=== PATIENT | female | born 1950 | race Caucasian/White ===

== ENCOUNTER → 2021-12-17 | Outpatient (CLI) | payer MEDICARE, OTHER ==
--- NOTE | 2021-12-18 16:10 | BD ---
EXAMINATION TYPE: Axial Bone Density DATE OF EXAM: 12/17/2021 COMPARISON: NONE CLINICAL HISTORY: 71 years year old Female. ICD-10 CODE: M81.0 Osteoporosis Height: 65.5 Weight: 182 FRAX RISK QUESTIONS: Alcohol (3 or more units per day): YES RISK FACTORS HISTORY OF: Active: YES Diet low in dairy products/other sources of calcium: YES Postmenopausal woman: 47 Take estrogen and/or progesterone medications: NOT NOW How lon YRS Lost more than 2 inches in height since high school: YES MEDICATIONS: Thyroid Medications: YES Which medication: Synthroid How Lon YRS Additional Medications: YES CRESTOR EXAM MEASUREMENTS: Bone mineral densitometry was performed using the [employer] System. Bone mineral density as measured about the Lumbar spine is: ----- L1-L4(G/cm2): 1.099 T Score Values are as follows: ----- L1: -1.1 ----- L2: -0.6 ----- L3: -0.8 ----- L4: -0.4 ----- L1-L4: -0.7 Bone mineral density BASELINE Bone mineral density about the R hip (g/cm2): .719 Bone mineral density about the L hip (g/cm2): .724 T Score values are as follows: -----R Neck: -2.3 -----L Neck: -2.3 -----R Total: -2.5 -----L Total: -2.4 Bone mineral density BASELINE FRAX%s: The graph provided illustrates a 17 chance for a major osteoporotic fx and a 5.1 chance for t he hips probability for fx in 10 years time. IMPRESSION: NOTE: T-SCORE=SD OF THE YOUNG ADULT MEAN.
--- NOTE | 2021-12-18 16:32 | MM ---
Reason for Exam: Screening (asymptomatic). Last mammogram was performed 1 year(s) and 6 month(s) ago. Patient History: Unspecified Hormone for 5 years from age 50 until age 55. Risk Values: Mallorie 5 year model risk: 1.1%. NCI Lifetime model risk: 3.2%. Prior Study Comparison: 12/23/2018 Bilateral MG screening mammo w CAD - 2, Unknown. 06/22/2020 Bilateral MG screening mammo w CAD - 2, Unknown. Tissue Density: There are scattered fibroglandular densities. Findings: Analyzed By CAD. No suspicious groups of microcalcifications, spiculated or lobular masses, architectural distortion or other secondary signs of malignancy are mammographically apparent. Overall Assessment: Benign, BI-RAD 2 Management: Screening Mammogram of both breasts in 1 year. A negative mammogram report should not preclude additional follow up of suspicious palpable abnormalities. Patient should continue monthly self breast exam. A clinical breast exam by your physician is recommended on an annual basis and results should be correlated with mammographic findings. Electronically signed and approved by: River Poe D.O. Radiologis
== END | disposition home or self-care (01) ==
LOC: RADMAMWWP 12:44
PROVIDERS: ATTEND Family Medicine
DX: Z12.31 Encounter for screening mammogram for malignant neoplasm of breast (principal); M81.0 Age-related osteoporosis without current pathological fracture
CPT/HCPCS: 77063; 77067; 77080

== ENCOUNTER → 2022-01-08 | Day surgery (SDC) | payer MEDICARE, OTHER ==
[~2022-01-08] MED LIST: LACTATED RINGERS 1,000 ML IV ONE; LACTATED RINGERS 1,000 ML IV SCH; LIDOCAINE 1% (10MG/ML) FOR IV START INTRADERMA PRN; PROPOFOL 10 MG/ML 20 ML VIAL IV ONE
[2022-01-08 08:48] VITALS: TEMP 97.6
--- NOTE | 2022-01-08 09:11 | P.GSHP ---
History of Present Illness H&P Date: 01/08/22 CHIEF COMPLAINT: Colon screen HISTORY OF PRESENT ILLNESS: The patient is a 71-year-old female who presents for colon screen. Lower endoscopy was offered for further evaluation and management. PAST MEDICAL HISTORY: Please see list. PAST SURGICAL HISTORY: Please see list. MEDICATIONS: Please see list. ALLERGIES: Please see list. SOCIAL HISTORY: No illicit drug use FAMILY HISTORY: No reports of Crohn disease or ulcerative colitis. REVIEW OF ORGAN SYSTEMS: CONSTITUTIONAL: No reports of fevers or chills. PHYSICAL EXAM: VITAL SIGNS: Stable GENERAL: Well-developed pleasant in no acute distress. HEENT: No scleral icterus. Extraocular movements grossly intact. Moist buccal mucosa. NECK: Supple without lymphadenopathy. CHEST: Unlabored respirations. Equal bilateral excursions. CARDIOVASCULAR: Regular rate and rhythm. Distal 2+ pulses. ABDOMEN: Soft, nontender, nondistended. MUSCULOSKELETAL: No clubbing, cyanosis, or edema. ASSESSMENT: 1. Colon screen. PLAN: 1. Recommend proceeding with a lower endoscopy Past Medical History Past Medical History: Thyroid Disorder History of Any Multi-Drug Resistant Organisms: None Reported Past Surgical History: Cholecystectomy, Hysterectomy, Joint Replacement Additional Past Surgical History / Comment(s): lft knee replacement, sixto knee arthroscopy, tendon realignment, Past Anesthesia/Blood Transfusion Reactions: Postoperative Nausea & Vomiting (PONV) Smoking Status: Former smoker Medications and Allergies Home Medications Medication Instructions Recorded Confirmed Type Levothyroxine Sodium [Levo-T] 75 mcg PO DAILY 01/07/22 01/07/22 History Rosuvastatin [Crestor] 20 mg PO DAILY 01/07/22 01/07/22 History Allergies Allergy/AdvReac Type Severity Reaction Status Date / Time codeine AdvReac Hallucinati Verified 01/08/22 08:37 ons Surgical - Exam Vital Signs Temp Pulse Resp BP Pulse Ox 97.6 F 79 16 132/88 99 01/08/22 08:35 01/08/22 08:35 01/08/22 08:35 01/08/22 08:35 01/08/22 08:35
[2022-01-08 11:01] VITALS: BP 134/62; PULSE 68; RESP 18
--- NOTE | 2022-01-08 21:45 | FL ---
EXAMINATION TYPE: FL barium enema DATE OF EXAM: 01/08/2022 COMPARISON: NONE HISTORY: Sigmoid stricture. Incomplete colonoscopy. TECHNIQUE: A double contrast barium enema study is performed. A total of 2 minutes 19 seconds of fl uoroscopic time was utilized during procedure and 26 images obtained. FINDINGS: [employer] view of the abdomen shows overall gas prominence after recent attempted colonoscopy extending to the right colon. Slight underlying scoliotic curvature. There is then successful filling to the cecum. Evaluation is suboptimal as patient has redundant sigm oid colon. Patient also unable to hold contrast was significant rectal leak. Both makes evaluation carvalho boptimal. No obstructing or constricting lesion throughout the colon. Mild narrowing stricturing at t he level of sigmoid colon at site of most prominent diverticulosis is noted. Mild diverticulosis in t he left colon is seen. Appendix and the terminal ileum are not successfully refluxed. IMPRESSION: Successful filling to the cecum. No obstructing or constricting lesion. Distal colonic d iverticulosis greatest in sigmoid colon level where there is mild narrowing or stricturing present.
--- NOTE | 2022-01-08 21:51 | P.PCN ---
Date of Procedure: 01/08/22 Description of Procedure: PREOPERATIVE DIAGNOSIS: Personal history of colon polyps Family history malignant colon polyps Colonoscopy screening POSTOPERATIVE DIAGNOSIS: Sigmoid diverticulosis with stricture Internal hemorrhoids, grade 4 External hemorrhoids, grade 4 OPERATION: Colonoscopy to the splenic flexure SURGEON: Jennifer Gonsalves MD. ANESTHESIA: MAC. INDICATIONS: The patient is an 71-year-old male who presents family history of malignant colon polyps and personal history of colon polyps. Last colonoscopy 5 years. Benefits and risks were described and informed consent was obtained. DESCRIPTION OF PROCEDURE: The patient had undergone Sutab prep. The patient had been brought into the operating room and laid in the left lateral decubitus position. After adequate intravenous sedation, the rectum was examined with 2% lidocaine jelly. External hemorrhoids were encountered. The rectal tone was within normal limits. No lesions were palpated in the rectal vault. An Olympus pediatric colonoscope was advanced through the colon. The prep was excellent. Sigmoid diverticulosis was encountered with stricture unable to advance the scope beyond the splenic flexure without rupture. Colonic polyps were found and removed. Focal colitis was found from diverticulitis of the sigmoid colon. Retroflexion of the scope demonstrated grade 4 internal hemorrhoids without active bleeding or inflammation. The colon was desufflated. The patient had tolerated the procedure well. Withdrawal time was over 6 minutes. FINDINGS: Aronchick preparation quality scale 1 (1-5) Internal hemorrhoids, grade 4 without bleeding. External hemorrhoids, grade 4. No arteriovenous malformations. Sigmoid diverticulosis with stricture prohibiting advancing the scope beyond the splenic flexure for risk of rupture Focal colitis at diverticulitis RECOMMENDATIONS: Recommend barium enema May need sigmoid resection due to stricture from diverticulosis/diverticulitis Plan - Discharge Summary Discharge Rx Participant: No New Discharge Prescriptions: Continue Levothyroxine Sodium [Levo-T] 75 mcg PO DAILY Rosuvastatin [Crestor] 20 mg PO DAILY Discharge Medication List Levothyroxine Sodium [Levo-T] 75 mcg PO DAILY 01/07/22 [History] Rosuvastatin [Crestor] 20 mg PO DAILY 01/07/22 [History] Follow up Appointment(s)/Referral(s): Jennifer Gonsalves MD [STAFF PHYSICIAN] - 01/14/22 (FOLLOW UP WITH DR GONSALVES 01/14/22 AT 3:45) Patient Instructions/Handouts: *Surgery [facility] - (Anesthesia) Endoscopy Discharge Instructions, Barium Enema (ED), Barium Enema (DC), Diverticulosis (DC), Diverticulosis Diet (GEN), Colonoscopy (DC) Activity/Diet/Wound Care/Special Instructions: Barium enema advised Discharge Disposition: HOME SELF-CARE
== END | disposition home or self-care (01) ==
LOC: ORWHC2ENDO 08:19
PROVIDERS: ATTEND Surgery Plastic and Reconstructive Surgery
DX: Z12.11 Encounter for screening for malignant neoplasm of colon (principal); K57.30 Diverticulosis of large intestine without perforation or abscess without bleeding; K63.5 Polyp of colon; K64.3 Fourth degree hemorrhoids; K64.4 Residual hemorrhoidal skin tags; K57.32 Diverticulitis of large intestine without perforation or abscess without bleeding; K56.609 Unspecified intestinal obstruction, unspecified as to partial versus complete obstruction; K52.9 Noninfective gastroenteritis and colitis, unspecified; E07.9 Disorder of thyroid, unspecified; Z79.890 Hormone replacement therapy; Z79.899 Other long term (current) drug therapy; Z96.652 Presence of left artificial knee joint; Z98.890 Other specified postprocedural states; Z87.891 Personal history of nicotine dependence; Z88.5 Allergy status to narcotic agent
CPT/HCPCS: 45330; 74270; 45378; J2704

== ENCOUNTER → 2022-12-18 | Outpatient (CLI) | payer MEDICARE, OTHER ==
--- NOTE | 2022-12-18 11:37 | MM ---
Reason for Exam: Screening (asymptomatic). Last screening mammogram was performed 12 month(s) ago. Patient History: Menarche at age 14. Patient has no children. Hysterectomy at age 37. Postmenopausal. Unspecified Hormone for 5 years from age 50 until age 55. Risk Values: Mallorie 5 year model risk: 1.8%. NCI Lifetime model risk: 4.6%. Prior Study Comparison: 12/23/2018 Bilateral MG screening mammo w CAD - 2, Unknown. 06/22/2020 Bilateral MG screening mammo w CAD - 2, Unknown. 12/17/2021 Bilateral MG 3D screening mammo w/cad, [facility]. Tissue Density: The breast tissue is heterogeneously dense. This may lower the sensitivity of mammography. Findings: Analyzed By CAD. Grouped asymmetries left breast middle depth upper aspect on MLO view. There are at least 4 areas present. Right breast asymmetry middle depth posterior nipple line on CC view approximately 4.0 cm from nipple measuring up to 9 mm. Overall Assessment: Incomplete: need additional imaging evaluation, BI-RAD 0 Management: Diagnostic Mammogram of both breasts. Diagnostic Breast Ultrasound of both breasts. [facility] will attempt to contact patient to return for supplemental views and ultrasound if indicated. Patient should continue monthly self-breast exams. A clinical breast exam by your physician is recommended on an annual basis. This exam should not preclude additional follow-up of suspicious palpable abnormalities. Note on Mallorie scores and lifetime risk: 1. A Mallorie score greater than 3% is considered moderate risk. If this is the case, consider specialist referral to assess eligibility for a risk reducing agent. 2. If overall lifetime risk for the development of breast cancer is 20% or higher, the patient may qualify for future screening with alternating mammogram and breast MRI. Electronically signed and approved by: Amadou Recinos DO
== END | disposition home or self-care (01) ==
LOC: RADMAMWWP 11:17
PROVIDERS: ATTEND Family Medicine
DX: Z12.31 Encounter for screening mammogram for malignant neoplasm of breast (principal); Z78.0 Asymptomatic menopausal state
CPT/HCPCS: 77063; 77067

== ENCOUNTER → 2022-12-25 | Outpatient (CLI) | payer MEDICARE, OTHER ==
--- NOTE | 2022-12-25 12:35 | USB ---
Reason for Exam: Additional evaluation requested from abnormal screening. Patient History: Menarche at age 14. Patient has no children. Hysterectomy at age 37. Postmenopausal. Unspecified Hormone for 5 years from age 50 until age 55. Risk Values: Mallorie 5 year model risk: 1.8%. NCI Lifetime model risk: 4.6%. Technique: Method: Targeted. Prior Study Comparison: 06/22/2020 Bilateral MG screening mammo w CAD - 2, Unknown. 12/17/2021 Bilateral MG 3D screening mammo w/cad, [facility]. 12/18/2022 Bilateral MG 3D screening mammo w/cad, [facility]. Findings: The whole breast of the right breast, the upper outer quadrant of the left breast, the axilla of both breasts and the retroareolar of both breasts were scanned. Technique utilized:US breast workup limited DENNY Image; Ultrasound imaging of: Area of concern, retroareolar region and axilla. No finding to correlate with the bilateral asymmetries on mammography. No evidence for organizing fluid collection or mass. Overall Assessment: Probably benign, BI-RAD 3 Management: Diagnostic Mammogram of both breasts in 6 months. A clinical breast exam by your physician is recommended on an annual basis and results should be correlated with mammographic findings. This exam should not preclude additional follow-up of suspicious palpable abnormalities. Results were given to the patient verbally at the time of exam. Electronically signed and approved by: Amadou Recinos DO
--- NOTE | 2022-12-25 13:12 | MM ---
Reason for Exam: Additional evaluation requested from abnormal screening. Last screening mammogram was performed less than 1 month ago. Patient History: Menarche at age 14. Patient has no children. Hysterectomy at age 37. Postmenopausal. Unspecified Hormone for 5 years from age 50 until age 55. Risk Values: Mallorie 5 year model risk: 1.8%. NCI Lifetime model risk: 4.6%. Prior Study Comparison: 12/17/2021 Bilateral MG 3D screening mammo w/cad, [facility]. 12/18/2022 Bilateral MG 3D screening mammo w/cad, [facility]. Tissue Density: There are scattered fibroglandular densities. Findings: Analyzed By CAD. Persistent focal asymmetries in the left breast upper outer quadrant middle/anterior depth and right breast upper outer quadrant middle depth. Overall Assessment: Incomplete: need additional imaging evaluation, BI-RAD 0 Management: Diagnostic Breast Ultrasound of both breasts. Results were given to the patient verbally at the time of exam. Patient should continue monthly self-breast exams. A clinical breast exam by your physician is recommended on an annual basis. This exam should not preclude additional follow-up of suspicious palpable abnormalities. Note on Mallorie scores and lifetime risk: 1. A Mallorie score greater than 3% is considered moderate risk. If this is the case, consider specialist referral to assess eligibility for a risk reducing agent. 2. If overall lifetime risk for the development of breast cancer is 20% or higher, the patient may qualify for future screening with alternating mammogram and breast MRI. Electronically signed and approved by: Amadou Recinos DO
== END | disposition home or self-care (01) ==
LOC: RADMAMWWP 11:24
PROVIDERS: ATTEND Family Medicine
DX: R92.323 Mammographic fibroglandular density, bilateral breasts (principal); Z78.0 Asymptomatic menopausal state
CPT/HCPCS: 77066; 76642; G0279; 77062

== ENCOUNTER 2023-06-01 10:34 | Emergency (ER) | payer MEDICARE, OTHER ==
[2023-06-01 10:55] VITALS: TEMP 98.3
[2023-06-01] MEDS: SODIUM CHLORIDE 0.9% 500 ML 500 ML IV STA (11:33)
[2023-06-01] MEDS: SODIUM CHLORIDE 0.9% 1,000 ML IV STA (11:33)
[2023-06-01] MEDS: ONDANSETRON 4 MG/2 ML VIAL IVP STA (11:34)
[2023-06-01] MEDS: KETOROLAC 15 MG/ML 1 ML VIAL IVP STA (11:34)
[2023-06-01 11:48] LABS: Basophils % (A) 0 %; Eosinophils # (A) 0.1 k/uL (0-0.7); Eosinophils % (A) 1 %; HCT 44.8 % (34.0-46.0); HGB 14.9 gm/dL (11.4-16.0); Lymphocytes # (A) 0.9 k/uL (1.0-4.8); Lymphocytes % (A) 9 %; MCH 31.2 pg (25.0-35.0); MCHC 33.3 g/dL (31.0-37.0); MCV 93.8 fL (80.0-100.0); Mean Platelet Volume 7.9; Monocytes # (A) 0.3 k/uL (0-1.0); Monocytes % (A) 3 %; Neutrophils # (A) 8.3 k/uL (1.3-7.7); Neutrophils % (A) 86 %; Platelet Count 225 k/uL (150-450); RBC 4.78 m/uL (3.80-5.40); RDW 11.8 % (11.5-15.5); WBC 9.6 k/uL (3.8-10.6)
[2023-06-01 11:58] LABS: ALT 24 U/L (4-34); AST 25 U/L (14-36); African American GFR (CKD) >90 (>60 ml/min/1.73 sqM); Albumin 3.8 g/dL (3.5-5.0); Alkaline Phosphatase 101 U/L (38-126); Anion Gap 5 mmol/L; Blood Urea Nitrogen 18 mg/dL (7-17); Calcium 9.9 mg/dL (8.4-10.2); Carbon Dioxide 23 mmol/L (22-30); Chloride 107 mmol/L (98-107); Glucose 136 mg/dL (74-99); Lipase 58 U/L (23-300); Non-African American GFR(CKD) >90 (>60 ml/min/1.73 sqM); Potassium 4.5 mmol/L (3.5-5.1); Sodium 135 mmol/L (137-145); Total Bilirubin 0.7 mg/dL (0.2-1.3); Total Protein 6.4 g/dL (6.3-8.2)
[2023-06-01 12:14] LABS: Amorphous Sediment,Urine Few /hpf; Appearance,Urine Cloudy (Clear); Bilirubin,Urine Negative (Negative); Blood,Urine Trace (Negative); Color,Urine Yellow; Glucose,Urine (UA) Negative (Negative); Ketones,Urine Negative (Negative); Leukocyte Esterase,Urine Negative (Negative); Mucus,Urine Rare /hpf; Nitrite,Urine Negative (Negative); Protein,Urine Trace (Negative); RBC,Urine 13 /hpf (0-5); Specific Gravity,Urine 1.027 (1.001-1.035); Squamous Epithelial Cell,Urine <1 /hpf (0-4); Urobilinogen,Urine <2.0 mg/dL (<2.0); WBC,Urine 3 /hpf (0-5)
--- NOTE | 2023-06-01 12:24 | CT ---
EXAMINATION TYPE: CT abdomen pelvis wo con DATE OF EXAM: 06/01/2023 COMPARISON: None INDICATION: right flank pain, nausea and vomiting DLP: 596.5 mGycm, Automated exposure control for dose reduction was used. CONTRAST: 0 mL of Isovue 300. Study performed without Oral Contrast TECHNIQUE: Axial images were obtained from above the diaphragm to the pubic rami in the axial plane a t 5 mm thick sections. Reconstructed images are reviewed on the computer in the coronal plane. FINDINGS: Limited CT sections are obtained the lung bases. The lung bases are clear. CT ABDOMEN: Liver: Normal Spleen: Normal Pancreas: Normal Adrenal glands: The adrenal glands are normal. Gallbladder: Normal Kidneys: There is moderate right hydronephrosis and hydroureter. Proximal renal collecting system may be duplicated. Aorta: Normal Inferior vena cava: Normal. CT PELVIS: Loops of bowel within the abdomen and pelvis are normal. Postsurgical changes are within the sigmoid colon. No obstruction is evident. There are loops of bowel which are incompletely distended or lac k oral contrast limiting their evaluation. Appendix: Normal as visualized. Urinary bladder: 0.4 cm calcification in the right posterior lateral urinary bladder may be a distal left ureterovesical junction stone or passage into the urinary bladder. Genitourinary structures: Uterus is not identified. Adnexa are normal. Osseous structures: No suspicious lytic or sclerotic lesions. IMPRESSION: 1. Distal left ureterovesical junction stone measuring 0.4 cm. This may have passed into the urinary bladder. 2. Moderate right hydronephrosis and hydroureter.
--- NOTE | 2023-06-01 12:49 | ED ---
Abdominal Pain HPI - General Chief Complaint: Abdominal Pain Stated Complaint: Vomitting Time Seen by Provider: 06/01/23 10:49 Source: patient, RN notes reviewed Mode of arrival: wheelchair Limitations: no limitations - History of Present Illness Initial Comments: 73-year-old female presents emergency department with chief complaint of right flank pain. Patient states it was sudden onset associated nausea, vomiting. Patient states nothing makes pain feel better or worse no history of kidney stones denies any dysuria she states pain makes her feel constipated but she states she has been having recent bowel movements which were normal denies any rectal bleeding no fevers. - Related Data Home Medications Medication Instructions Recorded Confirmed Rosuvastatin [Crestor] 20 mg PO DAILY 01/07/22 04/15/22 Aspirin [Adult Low Dose Aspirin EC] 81 mg PO DAILY 04/15/22 04/15/22 Multivitamins, Thera [Multivitamin 1 tab PO DAILY 04/15/22 04/15/22 (formulary)] Previous Rx's Medication Instructions Recorded Acetaminophen Tab [Tylenol Tab] 1,000 mg PO Q6HR PRN #30 tablet 04/19/22 Cyclobenzaprine [Flexeril] 10 mg PO TID #30 tab 04/19/22 Apixaban [Eliquis] 5 mg PO BID #60 tab 04/22/22 Furosemide [Lasix] 40 mg PO DAILY #14 tablet 04/22/22 Levothyroxine Sodium [Synthroid] 100 mcg PO DAILY@0630 #30 tab 04/22/22 Metoprolol Succinate (ER) [Toprol 25 mg PO DAILY #30 tab 04/22/22 XL] Simethicone [Gas-X] 125 mg PO TID PRN #20 capsule 04/22/22 traMADol HCl [Ultram] 50 mg PO Q6HR PRN 3 Days #12 tab 04/22/22 Ketorolac [Toradol] 10 mg PO Q8HR #15 tab 06/01/23 Ondansetron Odt [Zofran Odt] 4 mg PO Q8HR PRN #10 tab 06/01/23 Allergies Allergy/AdvReac Type Severity Reaction Status Date / Time codeine AdvReac Hallucinati Verified 06/01/23 10:47 ons Review of Systems ROS Statement: Those systems with pertinent positive or pertinent negative responses have been documented in the HPI. ROS Other: All systems not noted in ROS Statement are negative. Past Medical History Past Medical History: Thyroid Disorder Additional Past Medical History / Comment(s): Diverticulitis History of Any Multi-Drug Resistant Organisms: None Reported Past Surgical History: Cholecystectomy, Hysterectomy, Joint Replacement Additional Past Surgical History / Comment(s): lft knee replacement, sixto knee arthroscopy, tendon realignment, Past Anesthesia/Blood Transfusion Reactions: Postoperative Nausea & Vomiting (PONV) Past Psychological History: No Psychological Hx Reported Smoking Status: Former smoker Past Alcohol Use History: Occasional - Past Family History Mother Family Medical History: No Reported History Father Family Medical History: Cancer Additional Family Medical History / Comment(s): Colon General Exam Limitations: no limitations General appearance: alert, in no apparent distress Head exam: Present: atraumatic, normocephalic, normal inspection Eye exam: Present: normal appearance, PERRL, EOMI. Absent: scleral icterus, conjunctival injection, periorbital swelling Respiratory exam: Present: normal lung sounds bilaterally. Absent: respiratory distress, wheezes, rales, rhonchi, stridor Cardiovascular Exam: Present: regular rate, normal rhythm, normal heart sounds. Absent: systolic murmur, diastolic murmur, rubs, gallop, clicks GI/Abdominal exam: Present: soft, tenderness (Minimal right), normal bowel sounds. Absent: distended, guarding, rebound, rigid Back exam: Absent: CVA tenderness (R), CVA tenderness (L) Course Vital Signs 06/01/23 10:43 Temperature 98.3 F Pulse Rate 61 Respiratory 16 Rate Blood Pressure 124/83 O2 Sat by Pulse 100 Oximetry Medical Decision Making - Medical Decision Making Was pt. sent in by a medical professional or institution (, PA, OPINION POLLS SURVEY WORKER, urgent care, hospital, or prison...) When possible be specific @ -No Did you speak to anyone other than the patient for history (EMS, parent, family, police, friend...)? What history was obtained from this source @ -No Did you review nursing and triage notes (agree or disagree)? Why? @ -I reviewed and agree with nursing and triage notes Were old charts reviewed (outside hosp., previous admission, EMS record, old EKG, old radiological studies, urgent care reports/EKG's, prison records)? Report findings @ -No old charts were reviewed Differential Diagnosis (chest pain, altered mental status, abdominal pain women, abdominal pain men, vaginal bleeding, weakness, fever, dyspnea, syncope, headache, dizziness, GI bleed, back pain, seizure, CVA, palpatations, mental health, musculoskeletal)? @ -Differential Abdominal Pain Women: Appendicitis, Cholecystitis, diverticulosis, ischemic bowel, pancreatitis, hepatitis, UTI, gastroenteritis, AAA, incarcerated hernia, bowel obstruction, constipation, inflammatory bowel, hepatitis, peptic ulcer disease, splenic infarction, perforated viscus, vulvitis, ovarian torsion, PID, kidney stone, placenta abruption, this is not meant to be an all-inclusive list EKG interpreted by me (3pts min.). @ -None X-rays interpreted by me (1pt min.). @ -None done CT interpreted by me (1pt min.). @ -CT abdomen pelvis without contrast showing evidence of a right sided hydroureter, hydronephrosis with a 4 mm distal stone U/S interpreted by me (1pt. min.). @ -None done What testing was considered but not performed or refused? (CT, X-rays, U/S, labs)? Why? @ -None What meds were considered but not given or refused? Why? @ -None Did you discuss the management of the patient with other professionals (professionals i.e. , PA, OPINION POLLS SURVEY WORKER, lab, RT, psych nurse, social media director, criminal research specialist, teacher, credit risk officer, case reviewer)? Give summary @ -No Was smoking cessation discussed for >3mins.? @ -No Was critical care preformed (if so, how long)? @ -No Were there social determinants of health that impacted care today? How? (Home lessness, low income, unemployed, alcoholism, drug addiction, transportation, low edu. Level, literacy, decrease access to med. care, halfway, rehab)? @ -No Was there de-escalation of care discussed even if they declined (Discuss DNR or withdrawal of care, Hospice)? DNR status @ -No What co-morbidities impacted this encounter? (DM, HTN, Smoking, COPD, CAD, Cancer, CVA, ARF, Chemo, Hep., AIDS, mental health diagnosis, sleep apnea, morbid obesity)? @ -None Was patient admitted / discharged? Hospital course, mention meds given and route, prescriptions, significant lab abnormalities, going to OR and other pertinent info. @ -Discharge patient's pain is essentially resolved. Patient will be discharged in stable condition with analgesics, antiemetics return plans discussed. Undiagnosed new problem with uncertain prognosis? @ -No Drug Therapy requiring intensive monitoring for toxicity (Heparin, Nitro, Insulin, Cardizem)? @ -No Were any procedures done? @ -No Diagnosis/symptom? @ -Right ureteral calculus Acute, or Chronic, or Acute on Chronic? @ -Acute Uncomplicated (without systemic symptoms) or Complicated (systemic symptoms)? @ -Uncomplicated Side effects of treatment? @ -No Exacerbation, Progression, or Severe Exacerbation? @ -No Poses a threat to life or bodily function? How? (Chest pain, USA, ND, pneumonia, PE, COPD, DKA, ARF, appy, cholecystitis, CVA, Diverticulitis, Homicidal, S uicidal, threat to staff... and all critical care pts) @ -No - Lab Data Result diagrams: 06/01/23 11:25 06/01/23 11:25 Lab Results 06/01/23 06/01/23 06/01/23 Range/Units 11:25 11:25 11:25 WBC 9.6 (3.8-10.6) k/uL RBC 4.78 (3.80-5.40) m/uL Hgb 14.9 (11.4-16.0) gm/dL Hct 44.8 (34.0-46.0) % MCV 93.8 (80.0-100.0) fL MCH 31.2 (25.0-35.0) pg MCHC 33.3 (31.0-37.0) g/dL RDW 11.8 (11.5-15.5) % Plt Count 225 (150-450) k/uL MPV 7.9 Neutrophils % 86 % Lymphocytes % 9 % Monocytes % 3 % Eosinophils % 1 % Basophils % 0 % Neutrophils # 8.3 H (1.3-7.7) k/uL Lymphocytes # 0.9 L (1.0-4.8) k/uL Monocytes # 0.3 (0-1.0) k/uL Eosinophils # 0.1 (0-0.7) k/uL Basophils # 0.0 (0-0.2) k/uL Sodium 135 L (137-145) mmol/L Potassium 4.5 (3.5-5.1) mmol/L Chloride 107 (98-107) mmol/L Carbon Dioxide 23 (22-30) mmol/L Anion Gap 5 mmol/L BUN 18 H (7-17) mg/dL Creatinine 0.55 (0.52-1.04) mg/dL Est GFR (CKD-EPI)AfAm >90 (>60 ml/min/1.73 sqM) Est GFR (CKD-EPI)NonAf >90 (>60 ml/min/1.73 sqM) Glucose 136 H (74-99) mg/dL Calcium 9.9 (8.4-10.2) mg/dL Total Bilirubin 0.7 (0.2-1.3) mg/dL AST 25 (14-36) U/L ALT 24 (4-34) U/L Alkaline Phosphatase 101 (38-126) U/L Total Protein 6.4 (6.3-8.2) g/dL Albumin 3.8 (3.5-5.0) g/dL Lipase 58 (23-300) U/L Urine Color Yellow Urine Appearance Cloudy H (Clear) Urine pH 7.0 (5.0-8.0) Ur Specific [place] 1.027 (1.001-1.035) Urine Protein Trace H (Negative) Urine Glucose (UA) Negative (Negative) Urine Ketones Negative (Negative) Urine Blood Trace H (Negative) Urine Nitrite Negative (Negative) Urine Bilirubin Negative (Negative) Urine Urobilinogen <2.0 (<2.0) mg/dL Ur Leukocyte Esterase Negative (Negative) Urine RBC 13 H (0-5) /hpf Urine WBC 3 (0-5) /hpf Ur Squamous Epith Cells <1 (0-4) /hpf Amorphous Sediment Few H (None) /hpf Urine Mucus Rare H (None) /hpf Disposition Clinical Impression: Right ureteral calculus Disposition: HOME SELF-CARE Condition: Stable Instructions (If sedation given, give patient instructions): Kidney Stones (ED) Additional Instructions: Please return to the Emergency Department if symptoms worsen or any other concerns. Prescriptions: Ketorolac [Toradol] 10 mg PO Q8HR #15 tab Ondansetron Odt [Zofran Odt] 4 mg PO Q8HR PRN #10 tab PRN Reason: Nausea Is patient prescribed a controlled substance at d/c from ED?: No Referrals: Thomas Beck [Primary Care Provider] - 1-2 days Time of Disposition: 12:48
[2023-06-01 13:43] VITALS: BP 134/75; PULSE 71; RESP 18
== END 2023-06-01 13:23 | disposition home or self-care (01) ==
LOC: EC 10:34
DX: N13.2 Hydronephrosis with renal and ureteral calculous obstruction (principal); Z88.5 Allergy status to narcotic agent; Z87.891 Personal history of nicotine dependence
CPT/HCPCS: 36415; 80053; 83690; 85025; 81001; 74176; 99284; 96374; 96375; 96361 ×2; J2405; J1885

== ENCOUNTER → 2023-06-26 | Outpatient (CLI) | payer MEDICARE, OTHER ==
--- NOTE | 2023-06-26 14:54 | MM ---
Reason for Exam: Follow-up at short interval from prior study. Last screening mammogram was performed 6 month(s) ago. Patient History: Menarche at age 14. Patient has no children. Hysterectomy at age 37. Postmenopausal. Unspecified Hormone for 5 years from age 50 until age 55. Sister had breast cancer, age 76. Risk Values: Mallorie 5 year model risk: 3.2%. NCI Lifetime model risk: 7.7%. Prior Study Comparison: 12/23/2018 Bilateral MG screening mammo w CAD - 2, Unknown. 06/22/2020 Bilateral MG screening mammo w CAD - 2, Unknown. 12/17/2021 Bilateral MG 3D screening mammo w/cad, [facility]. 12/18/2022 Bilateral MG 3D screening mammo w/cad, [facility]. 12/25/2022 Bilateral MG 3D work up w/cad DEN[facility], [facility]. 12/25/2022 Bilateral US breast workup limited [facility], [facility]. Tissue Density: There are scattered areas of fibroglandular density. Findings: Analyzed By CAD. Areas of nodularity are stable. No new suspicious masses, calcifications or distortions. Overall Assessment: Benign, BI-RAD 2 Management: Screening Mammogram of both breasts in 1 year. Results were given to the patient verbally at the time of exam. Patient should continue monthly self-breast exams. A clinical breast exam by your physician is recommended on an annual basis. This exam should not preclude additional follow-up of suspicious palpable abnormalities. Note on Mallorie scores and lifetime risk: 1. A Mallorie score greater than 3% is considered moderate risk. If this is the case, consider specialist referral to assess eligibility for a risk reducing agent. 2. If overall lifetime risk for the development of breast cancer is 20% or higher, the patient may qualify for future screening with alternating mammogram and breast MRI. Electronically signed and approved by: Amadou Recinos DO
== END | disposition home or self-care (01) ==
LOC: RADMAMWWP 14:21
PROVIDERS: ATTEND Family Medicine
DX: R92.323 Mammographic fibroglandular density, bilateral breasts (principal); Z80.3 Family history of malignant neoplasm of breast; Z78.0 Asymptomatic menopausal state
CPT/HCPCS: 77066; G0279; 77062

== ENCOUNTER → 2023-07-30 | Outpatient (CLI) | payer MEDICARE, OTHER ==
--- NOTE | 2023-07-30 16:50 | XR ---
EXAMINATION TYPE: XR ribs bilateral DATE OF EXAM: 07/30/2023 COMPARISON: NONE CLINICAL INDICATION: Female, 73 years old with history of R07.1 CHEST PAIN ON BREATHING; Technique: 8 views of the bilateral ribs were obtained. FINDINGS: There are no rib fractures or focal intraosseous abnormalities. IMPRESSION: No significant abnormality seen.
--- NOTE | 2023-07-30 16:52 | XR ---
EXAMINATION TYPE: XR chest 2V DATE OF EXAM: 07/30/2023 COMPARISON: NONE HISTORY: Chest pain TECHNIQUE: Frontal and lateral views of the chest are obtained. FINDINGS: The lungs are clear. There is no pleural effusion or pneumothorax. The heart and pulmonary vasculature are normal. There is a moderate compression fracture in one of the lower thoracic vertebral segments of indetermi lisa age.. IMPRESSION: 1. No acute cardiopulmonary disease. 2. Moderate compression fracture of the lower thoracic vertebral segments. CT might be useful for fur ther evaluation.
== END | disposition home or self-care (01) ==
LOC: RADXRMAIN 15:48
PROVIDERS: ATTEND Nurse Practitioner
DX: M48.54XA Collapsed vertebra, not elsewhere classified, thoracic region, initial encounter for fracture (principal)
CPT/HCPCS: 71046; 71110

== ENCOUNTER → 2023-08-12 | Outpatient (CLI) | payer MEDICARE, OTHER ==
[2023-08-12 10:19] LABS: African American GFR (CKD) >90 (>60 ml/min/1.73 sqM); Blood Urea Nitrogen 16 mg/dL (7-17); Non-African American GFR(CKD) >90 (>60 ml/min/1.73 sqM)
--- NOTE | 2023-08-12 11:26 | CT ---
EXAMINATION TYPE: CT thoracic spine wo/w con DATE OF EXAM: 08/12/2023 COMPARISON: CT abdomen and pelvis 06/01/2023, rib study 07/30/2023 HISTORY: right mid rib pain, no injury CT DLP: 1219.4 mGycm Automated exposure control for dose reduction was used. Contrast: None Technique: Axial images 3 mm thick sections. Reconstructed images in the sagittal plane FINDINGS: There is a compression deformity of T9. Minimal posterior wall displacement is present. No spinal can al stenosis is present. Neural foramen are patent. This may be acute to subacute with mild soft tissu e swelling adjacent. Remaining vertebral levels preserved height. Disc heights are preserved. Alignment is normal. Lung windows within the field of view are clear. IMPRESSION: 1. SUBACUTE COMPRESSION DEFORMITY T9 WITH MINIMAL POSTERIOR WALL DISPLACEMENT OF THE SPINAL CANAL ORESTES NOSIS.
== END | disposition home or self-care (01) ==
LOC: RADCTMAIN 09:24
PROVIDERS: ATTEND Family Medicine
DX: M48.54XA Collapsed vertebra, not elsewhere classified, thoracic region, initial encounter for fracture (principal); M48.04 Spinal stenosis, thoracic region
CPT/HCPCS: 82565; 84520; 72130; 36415; Q9967

== ENCOUNTER → 2023-10-29 | Outpatient (CLI) | payer MEDICARE, OTHER ==
[2023-10-29 15:44] LABS: Basophils # (A) 0.05 X 10*3/uL (0.00-0.10); Basophils % (A) 0.9 %; Eosinophils # (A) 0.16 X 10*3/uL (0.04-0.35); HCT 41.2 % (37.2-46.3); HGB 13.8 g/dL (12.0-15.0); Lymphocytes # (A) 1.59 X 10*3/uL (0.90-5.00); Lymphocytes % (A) 30.1 %; MCH 30.9 pg (27.0-32.0); MCHC 33.5 g/dL (32.0-37.0); MCV 92.4 FL (80.0-97.0); Mean Platelet Volume 10.1 FL (9.5-12.2); Monocytes # (A) 0.53 X 10*3/uL (0.20-1.00); NRBC Per 100 WBC 0 X 10*3/uL (0.00-0.01); Neutrophils # (A) 2.93 X 10*3/uL (1.80-7.70); Neutrophils % (A) 55.6 %; Platelet Count 213 X 10*3/uL (140-440); RBC 4.46 X 10*6/uL (4.10-5.20); WBC 5.28 X 10*3/uL (4.50-10.00)
[2023-10-29 16:54] LABS: ALT 24 U/L (8-44); AST 20 U/L (13-35); Albumin/Globulin Ratio 2.11 Ratio (1.60-3.17); Alkaline Phosphatase 94 U/L (41-126); Calcium 9.6 mg/dL (8.7-10.3); Carbon Dioxide 23.7 mmol/L (21.6-31.8); Chloride 105 mmol/L (96-109); Chol/HDL Ratio 2.21 Ratio; Globulin 1.9 g/dL (1.6-3.3); Glucose 104 mg/dL (70-110); LDL Cholesterol,Calculated 89.7 mg/dL (0.0-131.0); Potassium 4.3 mmol/L (3.5-5.5); Sodium 138 mmol/L (135-145); Total Bilirubin 0.6 mg/dL (0.3-1.2); Total Protein 5.9 g/dL (6.2-8.2); VLDL Calculation 13.08 mg/dL (5.00-40.00)
== END | disposition home or self-care (01) ==
LOC: LABWHC1 09:01
PROVIDERS: ATTEND Family Medicine
DX: E03.9 Hypothyroidism, unspecified
CPT/HCPCS: 36415; 80053; 80061; 82306; 84443; 85025

== ENCOUNTER → 2024-02-04 | Outpatient (CLI) | payer MEDICARE, OTHER | END | disposition home or self-care (01) | LOC: LABWHC1 08:59 | PROVIDERS: ATTEND Family Medicine | DX: E55.9 Vitamin D deficiency, unspecified (principal) | CPT/HCPCS: 36415; 82306; 83036 ==

== ENCOUNTER → 2024-07-14 | Outpatient (CLI) | payer MEDICARE, OTHER ==
--- NOTE | 2024-07-14 14:00 | MM ---
Reason for Exam: Screening (asymptomatic). Last screening mammogram was performed 12 month(s) ago. Patient History: Menarche at age 14. Patient has no children. Hysterectomy at age 37. Postmenopausal. Unspecified Hormone for 5 years from age 50 until age 55. Sister had breast cancer, age 76. Risk Values: Mallorie 5 year model risk: 3.2%. NCI Lifetime model risk: 7.2%. Prior Study Comparison: 12/18/2022 Bilateral MG 3D screening mammo w/cad, [facility] 12/25/2022 Bilateral MG 3D work up w/cad [facility], [facility]. 06/26/2023 Bilateral MG 3D diag mammo w/cad [facility], [facility]. Tissue Density: There are scattered areas of fibroglandular density. Findings: Analyzed By CAD. Right breast: There is no suspicious group of microcalcifications or new suspicious mass. Left breast: There is no suspicious group of microcalcifications or new suspicious mass. Overall Assessment: Negative, BI-RAD 1 Management: Screening Mammogram of both breasts in [address] [facility] will attempt to contact patient to return for supplemental views and ultrasound if indicated. Patient should continue monthly self-breast exams. A clinical breast exam by your physician is recommended on an annual basis. This exam should not preclude additional follow-up of suspicious palpable abnormalities. Note on Mallorie scores and lifetime risk: 1. A Mallorie score greater than 3% is considered moderate risk. If this is the case, consider specialist referral to assess eligibility for a risk reducing agent. 2. If overall lifetime risk for the development of breast cancer is 20% or higher, the patient may qualify for future screening with alternating mammogram and breast MRI. [facility], , 07/14/2024 1:50 PM. Electronically signed and approved by: Amadou Recinos DO
== END | disposition home or self-care (01) ==
LOC: RADBDWWP 13:03 → RADMAMWWP 13:53
PROVIDERS: ATTEND Family Medicine
DX: Z12.31 Encounter for screening mammogram for malignant neoplasm of breast (principal); Z78.0 Asymptomatic menopausal state; R92.323 Mammographic fibroglandular density, bilateral breasts; Z80.3 Family history of malignant neoplasm of breast
CPT/HCPCS: 77063; 77067

== ENCOUNTER 2024-08-25 07:28 | Day surgery (SDC) | payer MEDICARE, OTHER ==
[2024-08-23 13:01] VITALS: BMI 28.5
[~2024-08-25 07:28] MED LIST changes: -LACTATED RINGERS 1,000 ML IV ONE; -LACTATED RINGERS 1,000 ML IV SCH; -PROPOFOL 10 MG/ML 20 ML VIAL IV ONE
--- NOTE | 2024-08-25 07:59 | P.GSHP ---
History of Present Illness H&P Date: 08/25/24 CHIEF COMPLAINT: Colon screen HISTORY OF PRESENT ILLNESS: The patient is a 74-year-old female who presents for colon screen. Lower endoscopy was offered for further evaluation and management. PAST MEDICAL HISTORY: Please see list. PAST SURGICAL HISTORY: Please see list. MEDICATIONS: Please see list. ALLERGIES: Please see list. SOCIAL HISTORY: No illicit drug use FAMILY HISTORY: No reports of Crohn disease or ulcerative colitis. REVIEW OF ORGAN SYSTEMS: CONSTITUTIONAL: No reports of fevers or chills. PHYSICAL EXAM: VITAL SIGNS: Stable GENERAL: Well-developed pleasant in no acute distress. HEENT: No scleral icterus. Extraocular movements grossly intact. Moist buccal mucosa. NECK: Supple without lymphadenopathy. CHEST: Unlabored respirations. Equal bilateral excursions. CARDIOVASCULAR: Regular rate and rhythm. Distal 2+ pulses. ABDOMEN: Soft, nontender, nondistended. MUSCULOSKELETAL: No clubbing, cyanosis, or edema. ASSESSMENT: 1. Colon screen. PLAN: 1. Recommend proceeding with a lower endoscopy Past Medical History Past Medical History: Hyperlipidemia, Thyroid Disorder Additional Past Medical History / Comment(s): Diverticulitis History of Any Multi-Drug Resistant Organisms: None Reported Past Surgical History: Cholecystectomy, Hysterectomy, Joint Replacement Additional Past Surgical History / Comment(s): lft knee replacement, sixto knee arthroscopy, tendon realignment, 8 inches of bowel removed 2 1/2 years ago. Past Anesthesia/Blood Transfusion Reactions: No Reported Reaction Smoking Status: Former smoker - Past Family History Mother Family Medical History: No Reported History Father Family Medical History: Cancer Additional Family Medical History / Comment(s): Colon Medications and Allergies Home Medications Medication Instructions Recorded Confirmed Type Rosuvastatin [Crestor] 20 mg PO DAILY@0800 01/07/22 08/25/24 History Levothyroxine Sodium [Synthroid] 100 mcg PO DAILY@0400 06/01/23 08/25/24 History Aspirin [Adult Low Dose Aspirin EC] 81 mg PO DAILY 08/23/24 08/25/24 History Ibuprofen [Motrin] 400 mg PO DAILY PRN 08/23/24 08/25/24 History Multivitamin [Multivitamins Adult 1 each PO DAILY 08/23/24 08/25/24 History Gummies] [place]-3/Dha/Epa/Fish Oil [Fish Oil 1 tab PO DAILY 08/23/24 08/25/24 History EC 1,000 mg Softgel] Allergies Allergy/AdvReac Type Severity Reaction Status Date / Time codeine AdvReac Hallucinati Verified 08/25/24 07:51 ons
[2024-08-25 08:06] VITALS: TEMP 97.4
[2024-08-25] MEDS: IV FLUID CONTINUATION 1,000 ML IV ONE (08:06)
[2024-08-25] MEDS: LACTATED RINGERS 1,000 ML IV SCH (08:06)
[2024-08-25] MEDS ORDERED: PROPOFOL 10 MG/ML 20 ML VIAL IV ONE (08:18)
[2024-08-25 08:37] VITALS: RESP 18
--- NOTE | 2024-08-25 08:40 | P.PCN ---
Date of Procedure: 08/25/24 Description of Procedure: PREOPERATIVE DIAGNOSIS: Colonoscopy screening. Diverticulosis POSTOPERATIVE DIAGNOSIS: Colonoscopy screening. Diverticulosis, scattered. OPERATION: Colonoscopy to the cecum, ileocecal valve and appendiceal orifice. SURGEON: Jennifer Gonsalves MD. ANESTHESIA: MAC. INDICATIONS: The patient is a 74-year-old female who presents for colonoscopy screening. Last colonoscopy 5 years. She has personal history of colon polyps. She also has history of sigmoid colectomy. Benefits and risks were described and informed consent was obtained. DESCRIPTION OF PROCEDURE: The patient had undergone Sutab prep. The patient had been brought into the operating room and laid in the left lateral decubitus position. After adequate intravenous sedation, the rectum was examined with 2% lidocaine jelly. No external hemorrhoids were encountered. The rectal tone was within normal limits. No lesions were palpated in the rectal vault. An Olympus colonoscope was advanced until the cecum, ileocecal valve and appendiceal orifice were clearly viewed. The prep was excellent. Few scattered diverticulosis was encountered. No colonic polyps were found. No evidence of focal colitis was found. Retroflexion of the scope demonstrated grade 1 internal hemorrhoids without active bleeding or inflammation. The colon was desufflated. The patient had tolerated the procedure well. Withdrawal time was over 6 minutes. FINDINGS: Aronchick preparation quality scale 1 (1-5) Internal hemorrhoids, grade 1 No external prolapsed hemorrhoids. No arteriovenous malformations. No adenomatous polyps. No focal colitis. Scattered diverticulosis RECOMMENDATIONS: Lower endoscopy 5 years2029 Plan - Discharge Summary Discharge Rx Participant: Yes New Discharge Prescriptions: Continue Multivitamin [Multivitamins Adult Gummies] 1 each PO DAILY Rosuvastatin [Crestor] 20 mg PO DAILY@0800 Levothyroxine Sodium [Synthroid] 100 mcg PO DAILY@0400 [place]-3/Dha/Epa/Fish Oil [Fish Oil EC 1,000 mg Softgel] 1 tab PO DAILY Aspirin [Adult Low Dose Aspirin EC] 81 mg PO DAILY Ibuprofen [Motrin] 400 mg PO DAILY PRN PRN Reason: Pain Discharge Medication List Rosuvastatin [Crestor] 20 mg PO DAILY@0800 01/07/22 [History] Levothyroxine Sodium [Synthroid] 100 mcg PO DAILY@0400 06/01/23 [History] Aspirin [Adult Low Dose Aspirin EC] 81 mg PO DAILY 08/23/24 [History] Ibuprofen [Motrin] 400 mg PO DAILY PRN 08/23/24 [History] Multivitamin [Multivitamins Adult Gummies] 1 each PO DAILY 08/23/24 [History] [place]-3/Dha/Epa/Fish Oil [Fish Oil EC 1,000 mg Softgel] 1 tab PO DAILY 08/23/24 [History] Follow up Appointment(s)/Referral(s): Jennifer Gonsalves MD [STAFF PHYSICIAN] - As Needed Patient Instructions/Handouts: Diverticulosis (DC) Activity/Diet/Wound Care/Special Instructions: Repeat colonoscopy 5 years, 2030 Discharge Disposition: HOME SELF-CARE
[2024-08-25 08:49] VITALS: BP 134/93; PULSE 65
== END 2024-08-25 09:55 | disposition home or self-care (01) ==
LOC: ORWHC2ENDO 07:28
PROVIDERS: ATTEND Surgery Plastic and Reconstructive Surgery
DX: Z12.11 Encounter for screening for malignant neoplasm of colon (principal); K57.30 Diverticulosis of large intestine without perforation or abscess without bleeding; E78.5 Hyperlipidemia, unspecified; E03.9 Hypothyroidism, unspecified; Z79.82 Long term (current) use of aspirin; Z79.890 Hormone replacement therapy; Z79.899 Other long term (current) drug therapy; Z87.891 Personal history of nicotine dependence; Z86.0100 Personal history of colon polyps, unspecified; Z88.5 Allergy status to narcotic agent; Z90.49 Acquired absence of other specified parts of digestive tract; Z90.710 Acquired absence of both cervix and uterus
CPT/HCPCS: J2704; G0105; 45378